=== PATIENT | female | born 1960 | race Caucasian/White ===

== ENCOUNTER → 2016-09-29 | Outpatient (CLI) | payer BC | END | disposition home or self-care (01) | DX: M17.11 Unilateral primary osteoarthritis, right knee (principal); R26.2 Difficulty in walking, not elsewhere classified; M62.81 Muscle weakness (generalized); M25.661 Stiffness of right knee, not elsewhere classified | CPT/HCPCS: 97110 GP; 97150 GO; 97161 GP; 97165 GO ==

== ENCOUNTER 2016-11-10 08:37 | Inpatient (IN) | payer BC, OTHER ==
[~2016-11-10] VITALS: Ht 167.6 cm; Wt 115.8 kg
[~2016-11-10 08:37] MED LIST: COZAAR50 MG PO; FLEXERIL10 MG PO; FLONASE ALLERG9.9 ML BOTH NARES; FLOVENT 11120 INHALA IH; OMEPRAZOLE40 M1 PO; PROAIR HFA8.5 GM IH; ROSADAN45 G1 TP; SYNTHROID137 MCG PO; ZYRTEC10 M3 PO
[2016-11-10 09:40] VITALS: BP 135/86
[2016-11-10 14:55] LABS: HEMATOCRIT 40.3 % (36.0-46.0); MCH 27.9 PG (29.0-34.0); MCHC 31.3 G/DL (30.0-36.0); MCV 89.2 FL (83-99); MEAN PLAT.VOLUME 10.4 uM^3 (9.5-12.4); PLATELET COUNT 244 K/uL (156-360); RBC DIS.WIDTH-CV 12.9 % (11.8-14.6); RBC DIS.WIDTH-SD 42.4 % (39-53); RED BLOOD COUNT 4.52 M/uL (3.80-5.20); WHITE BLOOD COUNT 13.1 K/uL (4.1-10.2)
[2016-11-10 15:22] VITALS: BP 139/72
[2016-11-10 20:39] VITALS: BP 139/75
[2016-11-11 00:15] VITALS: BP 133/72
[2016-11-11 04:00] VITALS: BP 119/74
[2016-11-11 05:54] LABS: MCV 88.4 FL (83-99)
[2016-11-11 06:16] LABS: ANION GAP 7 MEQ/L (2-14); CHLORIDE 102 MEQ/L (99-109); GFR ESTIMATE (CALCULATED) > 59 mL/min/; GLUCOSE 155 mg/dL (70-99); POTASSIUM 3.9 MEQ/L (3.7-5.4); SAMPLE HEMOLYSIS CHECK 0; SAMPLE ICTERIC CHECK 0; SAMPLE LIPEMIA CHECK 0; SODIUM 133 MEQ/L (136-147); UREA NITROGEN (BUN) 8 mg/dL (9-23)
[2016-11-11 08:00] VITALS: BP 143/73
[2016-11-11 12:10] VITALS: BP 136/79
[2016-11-11 16:03] VITALS: BP 125/59
[2016-11-11 19:58] VITALS: BP 122/63
[2016-11-12] VITALS (7 sets, daily range): BP systolic 112–144; BP diastolic 55–69
[2016-11-12 04:52] LABS: HEMATOCRIT 36.9 % (36.0-46.0)
[2016-11-12 04:59] LABS: CHLORIDE 104 mEq/L (99-109); POTASSIUM 3.9 mEq/L (3.7-5.4); SODIUM 135 mEq/L (136-147)
[2016-11-12 05:01] LABS: GLUCOSE 160 mg/dL (70-99)
[2016-11-12 05:02] LABS: ANION GAP 9 MEQ/L (2-14)
[2016-11-12 05:04] LABS: GFR ESTIMATE (CALCULATED) > 59 mL/min/
[2016-11-12 05:05] LABS: UREA NITROGEN (BUN) 7 mg/dL (9-23)
[2016-11-12] MEDS ORDERED: DOCUSATE SODIU100 MG PO (08:18)
[2016-11-12] MEDS ORDERED: LOVENOX40 MG/0.4 SC (08:19)
[2016-11-12] MEDS ORDERED: HYDROCODON-ACE1 EAC7 PO (08:19)
[2016-11-13 00:41] VITALS: BP 117/59
[2016-11-13 04:53] VITALS: BP 114/61
[2016-11-13 08:06] VITALS: BP 116/59
[2016-11-13 11:55] VITALS: BP 131/61
[2016-11-13 15:30] VITALS: BP 114/57
== END 2016-11-13 19:05 | disposition home or self-care (01) | DRG 470 ==
LOC: 2SOUTH 08:37 → 3WEST 08:37 → 2SOUTH 09:11 → 3WEST 15:02 → 3EAST 11-12 20:05
PROVIDERS: Orthopaedic Surgery; Physician Assistant
PROC: 0SRC0J9 Replacement of Right Knee Joint with Synthetic Substitute, Cemented, Open Approach (ICD-10-PCS; principal; 2016-11-10)
DX: M17.11 Unilateral primary osteoarthritis, right knee (principal); I10 Essential (primary) hypertension; E03.9 Hypothyroidism, unspecified; M79.7 Fibromyalgia; M21.161 Varus deformity, not elsewhere classified, right knee; E11.9 Type 2 diabetes mellitus without complications; Z85.850 Personal history of malignant neoplasm of thyroid
CPT/HCPCS: 71010; 73560; 73630; 80048; 85014; 85018; 85027; 94799; 97530 GO; 97530 GP; 99202; J0131; J0330; J1170; J1650; J2250; J2405; J3010; J7030; J7050